=== PATIENT | female | born 1935 | race Caucasian/White ===

== ENCOUNTER → 2016-12-29 | Outpatient (REF) | payer MEDICARE, OTHER ==
[~2016-12-29] MED LIST: AC500T PO; ACET-77 PO; AMLO1TAB47 PO; AMLO5TAB4 PO; AMOX500T2 PO; ASP81CT PO; ATN25T PO; ATOR20TA PO; ATOR40TA59 PO; BISA10SU18 RC; CHOL100061 PO; CITA20TA12 PO; CLOP75TA3 PO; CLPD75T PO; CTLP20T PO; CYAN10006 PO; DPAS20025 PO; ESCI10TA PO; ESCI10TA49 PO; ESTR0.5T PO; FURO20TA4 PO; GBPN300C PO; HYDR-3702 PO; INDA2.5T2 PO; INSU100V32 SQ; INSU100V6 SC; LABE100T PO; LORA-714 PO; LOSA100T8 PO; LOSA50TA2 PO; MAG1CAPS4 PO; MAGN400O7 PO; MELA5TAB12 PO; METF500T4 PO; ONDA8TAB13 PO; OXYC-200 PO; OXYGEN; POTA10CA2 PO; SAXA1TBM3 PO; SENN-115 PO; VIT D 1000 UNIT; VIT1CAPS16 PO
[2016-12-29 16:47] LABS: BILIRUBIN,URINE Negative (Negative); CLARITY,URINE Cloudy; COLOR,URINE Yellow; GLUCOSE, URINE (UA) Trace (Negative); LEUKOCYTE ESTERASE ,URINE Trace (Negative); PH,URINE 6.5 (5.0 - 8.0); UROBILINOGEN,URINE 0.2 mg/dL (0.2-1.0)
[2016-12-29 17:04] LABS: URINE CENTRIFUGED VOLUME 12 mL
== END ==
LOC: LAB 16:00
PROVIDERS: ATTEND Family Medicine
DX: N39.0 Urinary tract infection, site not specified (principal)
CPT/HCPCS: 81003; 81015; 87088